=== PATIENT | male | born 1995 | race Caucasian/White ===

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

== ENCOUNTER 2017-01-25 10:04 | Emergency (ER) | payer BC, MEDICAID, OTHER ==
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
[2017-01-25 11:26] VITALS: BP 132/84
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
== END 2017-01-25 11:22 | disposition home or self-care (01) ==
LOC: ER 10:04
DX: M54.2 Cervicalgia (principal); M54.9 Dorsalgia, unspecified; V87.7XXA Person injured in collision between other specified motor vehicles (traffic), initial encounter
CPT/HCPCS: 72040; 72110; 99283

== ENCOUNTER 2017-01-29 11:20 | Emergency (ER) | payer OTHER, BC, MEDICAID ==
[2017-01-29 11:30] VITALS: BP 146/80
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
== END 2017-01-29 12:13 | disposition home or self-care (01) ==
LOC: ER 11:20
DX: S16.1XXD Strain of muscle, fascia and tendon at neck level, subsequent encounter (principal); M54.5 Low back pain; M54.2 Cervicalgia; X58.XXXD Exposure to other specified factors, subsequent encounter
CPT/HCPCS: 99283